=== PATIENT | female | born 1950 | race Caucasian/White ===

== ENCOUNTER 2017-10-02 15:19 | Emergency (ER) | payer MEDICARE, BC ==
[2017-10-02] MEDS ORDERED: Adacel (T-DAP) 0.5 ML VIAL ONE (15:56)
--- NOTE | 2017-10-02 16:10 | RAD ---
THREE VIEWS LEFT ANKLE: History: Left ankle injury at 12:30 today with pain and swelling. FINDINGS: Three views of the left ankle shows a mildly displaced fracture of the lateral malleolus with overlyi ng soft tissue swelling. No dislocation is seen. There also appears to be a fracture of the base of t he fifth metatarsal. IMPRESSION: 1. Lateral malleolus fracture. 2. Fifth metatarsal fracture. POS: [facility]
== END 2017-10-02 17:24 | disposition home or self-care (01) ==
LOC: SCSER 15:19
DX: S92.352A Displaced fracture of fifth metatarsal bone, left foot, initial encounter for closed fracture (principal); S82.62XA Displaced fracture of lateral malleolus of left fibula, initial encounter for closed fracture; S50.811A Abrasion of right forearm, initial encounter; E78.5 Hyperlipidemia, unspecified; F41.9 Anxiety disorder, unspecified; F32.9 Major depressive disorder, single episode, unspecified; Z23 Encounter for immunization; W10.9XXA Fall (on) (from) unspecified stairs and steps, initial encounter
CPT/HCPCS: 27786; 28475; 90715

== ENCOUNTER 2020-05-17 09:16 | Emergency (ER) | payer MEDICARE, BC ==
[2020-05-17] MEDS ORDERED: Ondansetron ODT 4 MG TAB ONE (09:40)
[2020-05-17 18:30] LABS: SARS-CoV-2 MS2 Positive; SARS-CoV-2 N Gene Positive; SARS-CoV-2 S Gene Positive; SARS-CoV-2 by NAA DETECTED (NotDetected); SARS-CoV-2 orf1ab Positive
== END 2020-05-17 09:50 | disposition home or self-care (01) ==
LOC: ERS 09:16
DX: U07.1 COVID-19 (principal); E78.5 Hyperlipidemia, unspecified; E78.00 Pure hypercholesterolemia, unspecified; F41.9 Anxiety disorder, unspecified; F32.9 Major depressive disorder, single episode, unspecified
CPT/HCPCS: 87804 ×2; 99283; U0003; 87635; Q0162

== ENCOUNTER 2020-05-23 11:39 | Inpatient (IN) | payer MEDICARE, BC ==
[~2020-05-23 11:39] MED LIST: Iopamidol-370 76% 500 ML 1 ML ONE
[2020-05-23] MEDS ORDERED: Dexamethasone 10 MG/ML VIAL ONE (12:20)
[2020-05-23] MEDS ORDERED: Ondansetron PF 4 MG/2 ML Vial ONE ×2 (12:20→14:04)
[2020-05-23 12:36] LABS: Hemoglobin 12.6 g/dL (12.0-16.0); Mean Corpuscular HGB CONC 33.3 g/dL (32.0-36.0); Mean Corpuscular Hemoglobin 26.3 pg (27.0-31.0); Mean Platelet Volume 8.4 fL (7.4-10.4); Platelet Count 322 thou/uL (130-400); RBC Distribution Width 12.6 % (11.5-14.5); Red Blood Cell (RBC) Count 4.78 mill/uL (4.20-5.40); White Blood Cell (WBC) Count 14.3 thou/uL (4.8-10.8)
[2020-05-23 12:46] LABS: ALT (SGPT) 39 U/L (8-55); AST (SGOT) 100 U/L (5-34); Albumin 3.5 g/dL (3.4-4.8); Alkaline Phosphatase 146 U/L (40-110); Anion Gap 18 mmol/L (10-20); BUN (Urea Nitrogen) 20 mg/dL (9.8-20.1); Bilirubin, Total 0.4 mg/dL (0.2-1.2); Calc. Creatinine Clearance 0 mL/min (70-130); Calcium 8.5 mg/dL (7.8-10.44); Carbon Dioxide 22 mmol/L (23-31); Chloride 103 mmol/L (98-107); Globulin 3.2 g/dL (2.4-3.5); Glucose 124 mg/dL (83-110); Potassium 3.6 mmol/L (3.5-5.1); Protein, Total 6.7 g/dL (6.0-8.3); Sodium 139 mmol/L (136-145)
--- NOTE | 2020-05-23 12:47 | RAD ---
Portable frontal chest radiograph: 05/23/2020 COMPARISON: 01/14/2015 HISTORY: Covid positive patient with worsening symptoms FINDINGS: There is extensive interstitial and groundglass opacity in the perihilar regions and both l jovi bases consistent with Covid pneumonia. No pneumothorax. No large volume pleural effusion. Heart and mediastinal contours demonstrate prominence of the cardiac silhouette. IMPRESSION: Interstitial and alveolar opacity bilaterally as above. Given history of Covid positive s tatus, findings are suspicious for bilateral Covid pneumonia.
[2020-05-23 12:54] LABS: Band 4 % (5-11); Lymphocytes 1 % (21-51); MDiff Complete? YES; Monocytes 7 % (0-10); Neutrophil 88 % (42-75); Platelet Morphology Comment Appears Adequate; RBC Morphology Normal; Vacuoles SLIGHT
[2020-05-23] MEDS ORDERED: Albuterol 200 PUFF (6.7GM INHALER) ONE (14:13)
[2020-05-23 15:08] LABS: Magnesium 2.2 mg/dL (1.6-2.6)
[2020-05-23] MEDS ORDERED: Calcium Carbonate 500 MG ChewTAB PO PRN (15:48)
[2020-05-23] MEDS ORDERED: traMADol HCl 50 MG TAB PO PRN (15:51)
[2020-05-23] MEDS ORDERED: Diabetic Tussin 200 MG/10 ML UDCUP PO PRN (15:52)
[2020-05-23] MEDS ORDERED: Albuterol 200 PUFF (6.7GM INHALER) INH PRN (15:56)
[2020-05-23] MEDS ORDERED: NS 0.9% w/ 20 MEQ KCL 1,000 ML/1,000 ML BAG IV SCH (16:00)
--- NOTE | 2020-05-23 16:02 | PDOC.HHP ---
Hospitalist HPI - History of Present Illness Shortness of breath/recently diagnosed with COVID-19 History of Present Illness: Patient is 70-year-old female with COVID-19 diagnosed 6 days ago presented to the emergency room with above complaints. Over the last 10 days patient developed gradual worsening shortness of breath along with flulike symptoms. She had cough without significant production. She also had intermittent nausea along with vomiting and diarrhea. She felt febrile and had intermittent chills. She visited her [id number] approximately 2 weeks ago who tested positive for coronavirus and flu virus. She denies significant change in her taste or smell. In the emergency room her initial vital signs showed temperature 99.9, respiration of 20, pulse rate of 89 with a blood pressure 139/76 with O2 saturation 91% on room air. ABGs showed pH of 7.39 with PO2 of 57.9 on 1 [address] nasal cannula. CT scan of the chest showed extensive bilateral groundglass opacity. COVID-19 was positive on 05/17. PAST MEDICAL HISTORY: Hyperlipidemia, chronic low back pain, degenerative joint disease, migraines, chronic left ear hearing issues PAST SURGICAL HISTORY: Tubal ligation 1991, uterine ablation in 1994, back surgery, knee surgery in 2013, fibrous cyst removal ALLERGIES: Azithromycindoes not work well per previous record SOCIAL HISTORY: Currently lives at home with her . She is full code. Denies current use of smoking or alcohol FAMILY HISTORY: Heart disease runs in her family. Mother had seizures. ED Course: MEDICATION ADMINISTRATION SUMMARY Sat May 23, 2020 16:03 Drug Name Dose Ordered Route Status Time Proventil HFA 4 puff(s) Inhaler-MDI Given 14:23 05/23/2020 ondansetron HCl intravenous 4 mg IV Push Given 14:07 05/23/2020 sodium chloride 0.9 % intravenous 1000 mL IV Fluid Infusion Given 14:06 05/23/2020 ondansetron HCl intravenous 4 mg IV Push Given 12:30 05/23/2020 sodium chloride 0.9 % intravenous 1000 mL IV Fluid Infusion Given 12:25 05/23/2020 dexamethasone sodium phosphate injection 8 mg IV Push Given 12:25 05/23/2020 VITAL SIGNS Sat May 23, 2020 11:50 Opal Lawrence BP: 139/76, Pulse: 85, Resp: 16, Pain: 10, O2 sat: 91 on (Room Air), Time: 05/23/2020 11:50. Hospitalist ROS - Review of Systems Constitutional: reports: fever, chills, weakness, malaise Respiratory: reports: cough Cardiovascular: denies: chest pain, palpitations, orthopnea, paroxysmal noc. dyspnea, edema, light headedness, other Genitourinary: denies: dysuria, frequency, incontinence, hematuria, retention, other All other systems reviewed; all pertinent +/- noted in HPI/Subj - Medication Medications: atorvastatin TABLET : Strength - 40 mg : ORAL Patient Dose: unk tab(s) Oral once a day. Lyrica CAPSULE : Strength - 75 mg : ORAL Patient Dose: unk tab(s) Oral once a day (in the morning). traMADol TABLET : Strength - 50 mg : ORAL Patient Dose: Unknown. - Exam General Appearance: ill appearing Eye: PERRL, anicteric sclera ENT: normocephalic atraumatic, no oropharyngeal lesions Neck: supple, no JVD Heart: RRR, no gallops, no rubs, normal peripheral pulses Respiratory: no wheezes, rales, rhonchi, tachypneic Gastrointestinal: soft, non-distended, normal bowel sounds, no guarding, no rigidity Extremities: no cyanosis, no clubbing, no edema Skin: normal turgor, no lesions Neurological: no new deficit Musculoskeletal: normal tone, generalized weakness Psychiatric: normal affect, A&O x 3 Hospitalist Results - Labs Result Diagrams: 05/23/20 12:19 05/23/20 12:19 Lab results: Laboratory Results 05/23/20 16:46: PT 13.8, INR 1.0, APTT 30.0 05/23/20 16:46: Troponin I 0.025 05/23/20 16:44: Specimen Type ARTERIAL, Puncture Site RBA, Bicarbonate Actual 18.5 L, ABG pH 7.39, ABG pCO2 31.4 L, ABG pO2 57.9 L*, ABG O2 Sat (Measured) 90.9 L, ABG O2 Content 15.2 L, ABG Base Excess -5.5 L, ABG Hematocrit 35.0 L, ABG Hemoglobin 12.0, ABG Oxyhemoglobin 90.1 L, ABG Carboxyhemoglobin 0.3, ABG Methemoglobin 0.60, ABG Deoxyhemoglobin 9.0 H, A-a O2 Gradient 73.970 H, Ionized Calcium 1.09 L, Mode of Support 1 NC, Inspired O2 24, Sodium 135, Potassium 3.81, Chloride 105 05/23/20 12:19: B-Natriuretic Peptide 137.9 H 05/23/20 12:19: C-Reactive Protein 21.98 H 05/23/20 12:19: Phosphorus 2.0 L, Magnesium 2.2 05/23/20 12:19: Troponin I 0.023 05/23/20 12:19: D-Dimer 1.16 H 05/23/20 12:19: WBC 14.3 H, RBC 4.78, Hgb 12.6, Hct 37.8, MCV 79.0, MCH 26.3 L, MCHC 33.3, RDW 12.6, Plt Count 322, MPV 8.4, Neutrophils % (Manual) 88 H, Band Neuts % (Manual) 4 L, Lymphocytes % (Manual) 1 L, Monocytes % (Manual) 7, Lymphocytes # Not Reportable, WBC Morphology SLIGHT, Plt Morphology Comment Appears Adequate, RBC Morph Comment Normal 05/23/20 12:19: Lactic Acid 1.1 05/23/20 12:19: Sodium 139, Potassium 3.6, Chloride 103, Carbon Dioxide 22 L, Anion Gap 18, BUN 20, Creatinine 0.81, Estimated GFR (MDRD) 70, Glucose 124 H, Calcium 8.5, Total Bilirubin 0.4, AST 100 H, ALT 39, Alkaline Phosphatase 146 H, Serum Total Protein 6.7, Albumin 3.5, Globulin 3.2, Albumin/Globulin Ratio 1.1 L 05/23/20 12:17: Ferritin 217.03 Laboratory Tests 05/17/20 09:50 SARS-CoV-2 (PCR) DETECTED A* - EKG Interpretation EKG: Sinus rhythm with nonspecific ST-T wave changesreviewed by me - Radiology Interpretation Chest x-ray Status: image reviewed by me Additional Comment: Bilateral infiltrate consistent with COVID-[address] scan - chest Status: image reviewed by me Additional Comment: Extensive bilateral infiltrate Hospitalist H&P A/P - Plan Plan: Acute hypoxic respiratory failure due to moderate to severe COVID-19 pneumonia Sepsis due to above Hypophosphatemia CKD stage II Abnormal LFTs Hyperlipidemia Chronic low back pain Chronic left ear hearing issues Plan: Patient will be monitored on the telemetry unit. Patient is at high risk of decompensation. Electrolytes will be replaced. Supplemental oxygen. Bronchodilators. Consult infectious disease. IV dexamethasone. Remdesivir and convalescent plasma if patient meets the criteria. DVT prophylaxis with Lovenox. GI prophylaxis. Continuous pulse oximetry. ABG reviewed. Verify home medication and start accordingly. Monitor inflammatory markers. Patient understands above plan of care. Full code. Patient makes her own decision with the help of her
--- NOTE | 2020-05-23 16:30 | CT ---
CT PULMONARY ANGIOGRAM WITH IV CONTRAST AND 3D MIP RECONSTRUCTIONS: 05/23/20 PROVIDED CLINICAL HISTORY: Cough. FINDINGS: No evidence for central or segmental pulmonary embolus. Coronary calcium. Extensive bilateral ground opacity in a patchy manner, predominantly affecting the right upper and right lobe. No pleural fluid or pneumothorax apparent. The airway appears patent and of normal caliber. The visualized portions of the upper abdomen appear unremarkable. Osseous structures demonstrate no acute findings. IMPRESSION: 1. No evidence for central or segmental pulmonary embolus. 2. Extensive bilateral ground glass opacity, typical but not specific for COVID pneumonia. POS: [facility]
[2020-05-23 16:53] LABS: Actual Bicarbonate (HCO3a) 18.5 mEq/L (22-28); Analyzer IN Cardio ER; Base Excess (BEa) -5.5 mEq/L (-2.0 to +3.0); CO2 Tension 31.4 mmHg (35.0-45.0); Calcium, Ionized (arterial) 1.09 mmol/L (1.12-1.30); Carboxyhemoglobin (COHb) 0.3 gm% (0.0-3.0); Potassium - ABG Lab 3.81 mmol/L (3.70-5.30); pH, Arterial 7.39 (7.35-7.45)
[2020-05-23 16:55] LABS: O2 Tension (PaO2), arterial 57.9 mmHg (> 70.0); Puncture Site RBA
[2020-05-23 17:44] LABS: Prothrombin Time 13.8 sec (12.0-14.7)
[2020-05-23] MEDS: Albuterol 200 PUFF (6.7GM INHALER) INH SCH ×2 (18:34→22:50)
[2020-05-23] MEDS: K-Phos Neutral 250 MG TAB PO SCH (18:35)
[2020-05-23] MEDS ORDERED: REMDESIVIR (EUA) 200 MG in Sodium Chloride 0.9% 250 ML 210 ML IV SCH (19:00)
[2020-05-23] MEDS: guaiFENesin ER 600 MG TAB PO SCH (20:39)
[2020-05-23] MEDS: Enoxaparin Sodium 40 MG/0.4 ML SYRINGE SC SCH (20:39)
[2020-05-23] MEDS: Zinc Sulfate 220 MG CAP PO SCH (20:40)
[2020-05-23] MEDS: Famotidine 20 MG TAB PO SCH (20:40)
[2020-05-23] MEDS: Senokot S 8.6-50 MG TAB PO SCH (20:40)
[2020-05-24 00:07] VITALS: BMI 33.0
[2020-05-24] MEDS: Albuterol 200 PUFF (6.7GM INHALER) INH SCH ×6 (02:32→22:05)
[2020-05-24 05:06] LABS: #Lymphocytes 0.6 thou/uL (1.20-3.40); #Monocytes 0.7 thou/uL (0.11-0.59); #Neutrophils 13.9 thou/uL (1.40-6.50); %Basophils 0.1 % (0.0-1.0); %Lymphocytes 3.6 % (21.0-51.0); %Monocytes 4.3 % (0.0-10.0); %Neutrophils 91.9 % (42.0-75.0); Hemoglobin 11.6 g/dL (12.0-16.0); Mean Corpuscular Hemoglobin 26.3 pg (27.0-31.0); Mean Corpuscular Volume 79.6 fL (78.0-98.0); Mean Platelet Volume 8.6 fL (7.4-10.4); Platelet Count 296 thou/uL (130-400); RBC Distribution Width 12.6 % (11.5-14.5); Red Blood Cell (RBC) Count 4.41 mill/uL (4.20-5.40); White Blood Cell (WBC) Count 15.2 thou/uL (4.8-10.8)
[2020-05-24 05:28] LABS: ALT (SGPT) 43 U/L (8-55); AST (SGOT) 81 U/L (5-34); Albumin 3.3 g/dL (3.4-4.8); Alkaline Phosphatase 120 U/L (40-110); Anion Gap 15 mmol/L (10-20); BUN (Urea Nitrogen) 18 mg/dL (9.8-20.1); Bilirubin, Total 0.2 mg/dL (0.2-1.2); Calc. Creatinine Clearance 94 mL/min (70-130); Carbon Dioxide 21 mmol/L (23-31); Chloride 107 mmol/L (98-107); Globulin 2.8 g/dL (2.4-3.5); Glucose 130 mg/dL (83-110); Potassium 3.7 mmol/L (3.5-5.1); Protein, Total 6.1 g/dL (6.0-8.3); Sodium 139 mmol/L (136-145)
[2020-05-24 05:32] LABS: Phosphorus 1.9 mg/dL (2.3-4.7)
[2020-05-24] MEDS ORDERED: K-Phos Neutral 250 MG TAB PO SCH (06:15)
[2020-05-24] MEDS: Enoxaparin Sodium 40 MG/0.4 ML SYRINGE SC SCH ×2 (09:23→19:55)
[2020-05-24] MEDS: guaiFENesin ER 600 MG TAB PO SCH ×2 (09:23→19:55)
[2020-05-24] MEDS: Ascorbic Acid 500 mg Chewable Tablet PO SCH (09:23)
[2020-05-24] MEDS: Senokot S 8.6-50 MG TAB PO SCH (09:23)
[2020-05-24] MEDS: Famotidine 20 MG TAB PO SCH ×2 (09:24→19:54)
[2020-05-24] MEDS: Dexamethasone 4 mg/ml Vial SLOW IVP SCH (09:24)
[2020-05-24] MEDS ORDERED: Loperamide HCl 2 MG CAP PO PRN (11:09)
--- NOTE | 2020-05-24 11:13 | PDOC.HOSPP ---
- Subjective Encounter Date: 05/24/20 Encounter Time: 10:30 Subjective: Patient seen and examined for respiratory failure due to COVID-19 pneumonia. Shortness of breath slightly better. Having diarrhea overnight. Denies any nausea or vomiting. Poor appetite. - Objective Vital Signs & Weight: Vital Signs (12 hours) Temp Pulse Pulse Resp BP BP BP 05/24/20 05:33 99.9 F H 85 22 H 127/58 L 05/24/20 04:26 98.7 F 85 22 H 126/59 L 05/24/20 04:12 98.7 F 85 22 H 126/59 L 05/24/20 03:56 99.1 F 80 22 H 127/58 L 05/24/20 03:06 99.1 F 80 22 H 127/58 L 05/24/20 00:17 97.4 F L 74 20 132/60 Pulse Ox 05/24/20 05:33 91 L 05/24/20 04:26 90 L 05/24/20 04:12 90 L 05/24/20 03:56 92 L 05/24/20 03:06 92 L 05/24/20 00:17 90 L Weight Weight 186 lb 3.239 oz I&O: 05/23/20 05/24/20 05/25/20 06:59 06:59 06:59 Intake Total 240 Balance 240 Result Diagrams: 05/24/20 04:56 05/24/20 04:57 Additional Labs: Abnormal Lab Results - Last 48 hrs 05/23/20 12:19: Carbon Dioxide 22 L, AST 100 H, Alkaline Phosphatase 146 H, Albumin/Globulin Ratio 1.1 L 05/23/20 12:19: WBC 14.3 H, MCH 26.3 L, Neutrophils % (Manual) 88 H, Band Neuts % (Manual) 4 L, Lymphocytes % (Manual) 1 L 05/23/20 12:19: D-Dimer 1.16 H 05/23/20 12:19: Phosphorus 2.0 L 05/23/20 12:19: C-Reactive Protein 21.98 H 05/23/20 12:19: B-Natriuretic Peptide 137.9 H 05/23/20 16:44: Bicarbonate Actual 18.5 L, ABG pCO2 31.4 L, ABG pO2 57.9 L*, ABG O2 Sat (Measured) 90.9 L, ABG O2 Content 15.2 L, ABG Base Excess -5.5 L, ABG Hematocrit 35.0 L, ABG Oxyhemoglobin 90.1 L, ABG Deoxyhemoglobin 9.0 H, A-a O2 Gradient 73.970 H, Ionized Calcium 1.09 L 05/24/20 04:56: C-Reactive Protein 19.92 H 05/24/20 04:56: WBC 15.2 H, Hgb 11.6 L, Hct 35.1 L, MCH 26.3 L, Neutrophils % 91.9 H, Lymphocytes % 3.6 L, Neutrophils # 13.9 H, Lymphocytes # 0.6 L, Monocytes # 0.7 H 05/24/20 04:57: D-Dimer 1.20 H 05/24/20 04:57: Carbon Dioxide 21 L, Phosphorus 1.9 L, AST 81 H, Alkaline Phosphatase 120 H, Albumin 3.3 L Radiology Reviewed by me: Yes (CT angiogram/bilateral pneumonia) EKG Reviewed by me: Yes (Sinus rhythm on telemetry) Hospitalist ROS - Review of Systems Respiratory: reports: shortness of breath, SOB with excertion. denies: cough, dry, hemoptysis, pleuritic pain, sputum, wheezing, other Cardiovascular: denies: chest pain, palpitations, orthopnea, paroxysmal noc. dyspnea, edema, light headedness, other Gastrointestinal: reports: diarrhea. denies: nausea, vomiting, abdominal pain, constipation, melena, hematochezia, other Genitourinary: denies: dysuria, frequency, incontinence, hematuria, retention, other All other systems reviewed; all pertinent +/- noted in HPI/Subj - Medication Medications: Active Medications Generic Name Dose Route Start Last Admin Trade Name Freq PRN Reason Stop Dose Admin Albuterol Sulfate 2 puff 05/23/20 18:30 05/24/20 09:40 Albuterol 200 Puff (6.7gm Inhaler) INH 2 puff [id number] SUMI Administration Ascorbic Acid 1,000 mg 05/24/20 09:00 05/24/20 09:23 Ascorbic Acid 500 Mg Chewable Tablet PO 1,000 mg DAILY SUMI Administration Dexamethasone 6 mg 05/24/20 09:00 05/24/20 09:24 Dexamethasone 4 Mg/Ml Vial SLOW IVP 6 mg DAILY SUMI Administration Enoxaparin Sodium 40 mg 05/23/20 21:00 05/24/20 09:23 Enoxaparin Sodium 40 Mg/0.4 Ml Syringe SC 40 mg 0900,2100 SUMI Administration Famotidine 20 mg 05/23/20 21:00 05/24/20 09:24 Famotidine 20 Mg Tab PO 20 mg BID SUMI Administration Guaifenesin 600 mg 05/23/20 21:00 05/24/20 09:23 Guaifenesin Er 600 Mg Tab PO 600 mg Q12HR SUMI Administration Sodium Chloride 10 ml 05/23/20 15:48 05/23/20 20:41 Flush - Normal Saline 10 Ml Syringe IVF 10 ml PRN PRN Administration Saline Flush Zinc Sulfate 220 mg 05/23/20 21:00 05/23/20 20:40 Zinc Sulfate 220 Mg Cap PO 220 mg HS SUMI Administration - Exam General Appearance: ill appearing Eye: PERRL ENT: normocephalic atraumatic, no oropharyngeal lesions Neck: supple, symmetric, no JVD, no thyromegaly Heart: RRR, no gallops, no rubs, normal peripheral pulses Respiratory: no wheezes, rales, rhonchi, tachypneic Gastrointestinal: soft, non-tender, non-distended, normal bowel sounds Extremities: no cyanosis, no clubbing Neurological: cranial nerve grossly intact, normal sensation to touch, no new deficit Musculoskeletal: normal tone, normal strength, generalized weakness Psychiatric: normal affect, A&O x 3 Hosp A/P - Plan DVT proph w/lovenox, DVT proph w/SCDs Acute hypoxic respiratory failure due to moderate to severe COVID-19 pneumonia Sepsis due to above Diarrhea due to above Hypophosphatemia CKD stage II Abnormal LFTs Hyperlipidemia Chronic low back pain Chronic left ear hearing issues Plan: Continue O2 supplementation. Continue remdesivir. S/p convalescent plasma. Continue dexamethasone. Continue Lovenox twice daily for DVT prophylaxis. Change K-Phos to IV due to diarrhea. Add as needed Imodium. Continue vitamin C and zinc. Continue bronchodilators
[2020-05-24] MEDS ORDERED: Potassium Phosphate 15 MMOL in Sodium Chloride 0.9% 250 ML 250 ML IVPB SCH (11:15)
[2020-05-24] MEDS: K-Phos Neutral 250 MG TAB PO SCH (12:48)
[2020-05-24] MEDS: REMDESIVIR (EUA) 100 MG in Sodium Chloride 0.9% 250 ML 230 ML IV SCH (18:08)
--- NOTE | 2020-05-24 18:31 | CON ---
DATE OF CONSULTATION: 05/24/2020 REASON FOR CONSULTATION: COVID pneumonia. HISTORY OF PRESENT ILLNESS: A 70-year-old, history of osteoporosis, hyperlipidemia, who was diagnosed with COVID on May 17, was having symptoms 10 days before admission, became more dyspneic and was admitted, has some diarrhea, was unable to eat until now. On arrival, blood pressure 130/76, heart rate 85, O2 saturation 91 on room air. Exam showed the patient to be in some distress, tachypneic. Lungs were described as clear. Heart examination was described as normal. Other findings; sodium went up to 139, creatinine 0.81, AST 100, alkaline phosphatase 146. CRP 21. Ferritin was 217. Diffuse bilateral ground-glass opacities on CT angiogram and she has been on remdesivir, started, today actually first dose. She is on Decadron started today as well. Feeling a little better. She was able to eat a sandwich. No headaches. [id number] dyspnea. She cannot walk to the bathroom without becoming very exhausted, so she has the bedside commode to help her out with that. PAST MEDICAL HISTORY: Hyperlipidemia, low back pain, and chronic hearing loss. PAST SURGICAL HISTORY: Tubal ligation, uterine ablation, laminectomy, and arthroscopy knee. ALLERGIES: NONE. SOCIAL HISTORY: Lives with . Never smoker. FAMILY HISTORY: Noncontributory. CURRENT MEDICATIONS: 1. Inhaler. 2. Decadron. 3. Lovenox. 4. Robitussin. 5. Imodium. 6. Remdesivir. PHYSICAL EXAMINATION: VITAL SIGNS: T-max 99.9, blood pressure 120/50, heart rate 91, respiratory rate 22, saturating at 91%, 92% on 4 L nasal cannula. GENERAL: Awake, alert, oriented, follows commands. Tachypneic. LUNGS: With scattered inspiratory crackles. HEART: S1 and S2, regular rate. ABDOMEN: Soft. Not distended or tender. No ascites. No bladder distention. MUSCULOSKELETAL: No joint inflammatory activity. Moves extremities equally. LABORATORY STUDIES: Followup labs; creatinine stable at 0.73. Liver profile, AST 81. White cell count 15.2, hemoglobin 11.6, platelets 296, 91% neutrophils. ASSESSMENT: Hyperlipidemia with severe COVID pneumonia. She is almost at the level where she would require high-flow nasal cannula O2 supplementation. Hopefully, she will turn around with the Decadron and remdesivir to avoid that. Daily markers and continue current management. Job ID: [id number]
[2020-05-24] MEDS: Zinc Sulfate 220 MG CAP PO SCH (19:55)
[2020-05-24] MEDS ORDERED: FLU VACC QS2020-21(65YR UP)/PF 240 MCG/0.7 ML SYRINGE IM ONE (21:00)
[2020-05-24] MEDS ORDERED: Melatonin 3 MG TAB PO SCH (22:00)
[2020-05-25] MEDS: Albuterol 200 PUFF (6.7GM INHALER) INH SCH ×6 (02:28→23:56)
[2020-05-25 06:07] LABS: ALT (SGPT) 47 U/L (8-55); AST (SGOT) 60 U/L (5-34); Albumin 2.9 g/dL (3.4-4.8); Alkaline Phosphatase 116 U/L (40-110); Anion Gap 14 mmol/L (10-20); BUN (Urea Nitrogen) 23 mg/dL (9.8-20.1); Bilirubin, Total 0.2 mg/dL (0.2-1.2); CRP (Inflammatory) 11.05 mg/dL (= or < 0.5); Calc. Creatinine Clearance 97 mL/min (70-130); Calcium 7.5 mg/dL (7.8-10.44); Carbon Dioxide 22 mmol/L (23-31); Chloride 108 mmol/L (98-107); Globulin 2.6 g/dL (2.4-3.5); Glucose 127 mg/dL (83-110); Potassium 3.7 mmol/L (3.5-5.1); Protein, Total 5.5 g/dL (6.0-8.3); Sodium 140 mmol/L (136-145)
[2020-05-25 06:09] LABS: Phosphorus 2.7 mg/dL (2.3-4.7)
[2020-05-25 06:15] LABS: ALT (SGPT) 47 U/L (8-55); AST (SGOT) 60 U/L (5-34); Albumin 2.9 g/dL (3.4-4.8); Alkaline Phosphatase 114 U/L (40-110); Bilirubin, Direct 0.1 mg/dL (0.1-0.3); Bilirubin, Total 0.2 mg/dL (0.2-1.2); Protein, Total 5.5 g/dL (6.0-8.3)
[2020-05-25 06:19] LABS: Band 11 % (5-11); Hemoglobin 11.3 g/dL (12.0-16.0); Lymphocytes 5 % (21-51); MDiff Complete? YES; Mean Corpuscular HGB CONC 34.2 g/dL (32.0-36.0); Mean Corpuscular Volume 78.9 fL (78.0-98.0); Mean Platelet Volume 9.2 fL (7.4-10.4); Monocytes 1 % (0-10); Neutrophil 83 % (42-75); Platelet Count 298 thou/uL (130-400); Platelet Morphology Comment Appears Adequate; RBC Distribution Width 12.7 % (11.5-14.5); Red Blood Cell (RBC) Count 4.16 mill/uL (4.20-5.40); White Blood Cell (WBC) Count 14.5 thou/uL (4.8-10.8)
[2020-05-25] MEDS: Famotidine 20 MG TAB PO SCH ×2 (09:00→19:41)
[2020-05-25] MEDS: Enoxaparin Sodium 40 MG/0.4 ML SYRINGE SC SCH ×2 (09:00→19:41)
[2020-05-25] MEDS: guaiFENesin ER 600 MG TAB PO SCH ×2 (09:00→19:42)
[2020-05-25] MEDS: Ascorbic Acid 500 mg Chewable Tablet PO SCH (09:00)
[2020-05-25] MEDS: Dexamethasone 4 mg/ml Vial SLOW IVP SCH (09:01)
--- NOTE | 2020-05-25 17:40 | PDOC.HOSPP ---
- Subjective Encounter Date: 05/25/20 Encounter Time: 09:45 Subjective: Patient up in bed no complaints. - Objective Vital Signs & Weight: Vital Signs (12 hours) Temp Pulse Resp BP Pulse Ox 05/25/20 15:25 98.3 F 85 18 130/62 98 05/25/20 11:15 97.7 F 84 18 144/68 H 96 05/25/20 09:20 99 05/25/20 07:25 98.3 F 79 16 139/62 99 Weight Weight 186 lb 3.239 oz I&O: 05/24/20 05/25/20 05/26/20 06:59 06:59 06:59 Intake Total 240 740 Balance 240 740 Result Diagrams: 05/25/20 04:58 05/25/20 04:58 Hospitalist ROS - Review of Systems Cardiovascular: denies: chest pain, palpitations, orthopnea, paroxysmal noc. dyspnea, edema, light headedness, other Gastrointestinal: denies: nausea, vomiting, abdominal pain, diarrhea, constipation, melena, hematochezia, other Genitourinary: denies: dysuria, frequency, incontinence, hematuria, retention, other - Medication Medications: Active Medications Generic Name Dose Route Start Last Admin Trade Name Freq PRN Reason Stop Dose Admin Albuterol Sulfate 2 puff 05/23/20 18:30 05/25/20 13:44 Albuterol 200 Puff (6.7gm Inhaler) INH 2 puff [id number] SUMI Administration Ascorbic Acid 1,000 mg 05/24/20 09:00 05/25/20 09:00 Ascorbic Acid 500 Mg Chewable Tablet PO 1,000 mg DAILY SUMI Administration Dexamethasone 6 mg 05/24/20 09:00 05/25/20 09:01 Dexamethasone 4 Mg/Ml Vial SLOW IVP 6 mg DAILY SUMI Administration Enoxaparin Sodium 40 mg 05/23/20 21:00 05/25/20 09:00 Enoxaparin Sodium 40 Mg/0.4 Ml Syringe SC 40 mg [id number] SUMI Administration Famotidine 20 mg 05/23/20 21:00 05/25/20 09:00 Famotidine 20 Mg Tab PO 20 mg BID SUMI Administration Guaifenesin 600 mg 05/23/20 21:00 05/25/20 09:00 Guaifenesin Er 600 Mg Tab PO 600 mg Q12HR SUMI Administration Remdesivir 100 mg/ Sodium 250 mls @ 250 mls/hr 05/24/20 19:00 05/24/20 18:08 Chloride IV 05/27/20 19:59 250 mls 1900 SUMI Administration Sodium Chloride 10 ml 05/23/20 15:48 05/25/20 09:01 Flush - Normal Saline 10 Ml Syringe IVF 10 ml PRN PRN Administration Saline Flush Zinc Sulfate 220 mg 05/23/20 21:00 05/24/20 19:55 Zinc Sulfate 220 Mg Cap PO 220 mg HS SUMI Administration - Exam Neck: negative: supple, symmetric, no JVD, no thyromegaly, no lymphadenopathy, no carotid bruit, JVD Heart: negative: RRR, no murmur, no gallops, no rubs, normal peripheral pulses, irregular, diminshed peripheral pulses, murmur present, II/IV, III/IV Respiratory: negative: CTAB, no wheezes, no rales, no ronchi, normal chest expansion, no tachypnea, normal percussion, rales, rhonchi, tachypneic, wheezes Gastrointestinal: negative: soft, non-tender, non-distended, normal bowel sounds, no palpable masses, no hepatomegaly, no splenomegaly, no bruit, no guarding, no rigidity, tender to palpation, distended, diminished bowl sounds, voluntary guarding Hosp A/P - Plan DVT proph w/lovenox, DVT proph w/SCDs Acute hypoxic respiratory failure due to moderate to severe COVID-19 pneumonia Sepsis due to above Diarrhea due to above Hypophosphatemia CKD stage II Abnormal LFTs Hyperlipidemia Chronic low back pain Chronic left ear hearing issues Plan: Continue O2 supplementation. Continue remdesivir. S/p convalescent plasma. Continue dexamethasone. Continue Lovenox twice daily for DVT prophylaxis. Change K-Phos to IV due to diarrhea. Add as needed Imodium. Continue vitamin C and zinc. Continue bronchodilators 05/25 patient continues to be on 5 L nasal cannula. We will continue current treatment.
--- NOTE | 2020-05-25 18:03 | PRG ---
DATE OF SERVICE: 05/25/2020 SUBJECTIVE: The patient is oriented and does not appear in distress. She still has dyspnea, but no abdominal pain. She is able to eat. She had loose stool earlier. No neurological issues. OBJECTIVE: VITAL SIGNS: T-max 99.9, she is currently 98.3; BP 130/60; heart rate 85; respiratory rate 18; O2 saturation 98% on 5 L. O2 requirements have gone up a bit, but that was mostly to get her O2 saturations above the 91% range, which she had been on the first two days while she was here. LUNGS: Symmetric air entry. HEART: S1 and S2. Regular rate. ABDOMEN: Soft and not distended. EXTREMITIES: Moves extremities equally. MEDICATIONS: She is on, 1. Decadron. 2. Remdesivir. ASSESSMENT AND DISCUSSION: Hyperlipidemia and severe COVID pneumonia, still not much improvement. We will see if she starts showing some signs starting tomorrow. Job ID: [id number]
[2020-05-25] MEDS: REMDESIVIR (EUA) 100 MG in Sodium Chloride 0.9% 250 ML 230 ML IV SCH (18:29)
[2020-05-25] MEDS: Zinc Sulfate 220 MG CAP PO SCH (19:41)
[2020-05-25] MEDS: Melatonin 3 MG TAB PO SCH (19:42)
[2020-05-26] MEDS: Albuterol 200 PUFF (6.7GM INHALER) INH SCH ×7 (03:13→20:59)
[2020-05-26 05:43] LABS: ALT (SGPT) 52 U/L (8-55); AST (SGOT) 53 U/L (5-34); Albumin 2.7 g/dL (3.4-4.8); Alkaline Phosphatase 106 U/L (40-110); Anion Gap 14 mmol/L (10-20); BUN (Urea Nitrogen) 20 mg/dL (9.8-20.1); Bilirubin, Total 0.2 mg/dL (0.2-1.2); Calc. Creatinine Clearance 109 mL/min (70-130); Calcium 7.4 mg/dL (7.8-10.44); Carbon Dioxide 23 mmol/L (23-31); Chloride 107 mmol/L (98-107); Globulin 2.4 g/dL (2.4-3.5); Glucose 126 mg/dL (83-110); Potassium 3.6 mmol/L (3.5-5.1); Protein, Total 5.1 g/dL (6.0-8.3); Sodium 140 mmol/L (136-145)
[2020-05-26 05:45] LABS: ALT (SGPT) 52 U/L (8-55); AST (SGOT) 50 U/L (5-34); Albumin 2.7 g/dL (3.4-4.8); Alkaline Phosphatase 106 U/L (40-110); Bilirubin, Direct 0.1 mg/dL (0.1-0.3); Bilirubin, Total 0.2 mg/dL (0.2-1.2); CRP (Inflammatory) 5.42 mg/dL (= or < 0.5)
[2020-05-26 05:55] LABS: Band 1 % (5-11); Hypochromia SLIGHT = 6-15 cells (100X) (0-5/hpf); Lymphocytes 5 % (21-51); MDiff Complete? YES; Mean Corpuscular HGB CONC 33.5 g/dL (32.0-36.0); Mean Corpuscular Hemoglobin 26.6 pg (27.0-31.0); Mean Corpuscular Volume 79.4 fL (78.0-98.0); Mean Platelet Volume 8.7 fL (7.4-10.4); Metamyelocyte 1 % (0-0); Monocytes 8 % (0-10); Neutrophil 85 % (42-75); Platelet Count 317 thou/uL (130-400); Platelet Morphology Comment Appears Adequate; RBC Distribution Width 12.8 % (11.5-14.5); Red Blood Cell (RBC) Count 4.14 mill/uL (4.20-5.40); White Blood Cell (WBC) Count 16.8 thou/uL (4.8-10.8)
[2020-05-26] MEDS: Lidocaine 5% Patch TD SCH (09:05)
[2020-05-26] MEDS: Enoxaparin Sodium 40 MG/0.4 ML SYRINGE SC SCH ×2 (09:05→20:57)
[2020-05-26] MEDS: Ascorbic Acid 500 mg Chewable Tablet PO SCH (09:05)
[2020-05-26] MEDS: Famotidine 20 MG TAB PO SCH ×2 (09:05→20:57)
[2020-05-26] MEDS: Dexamethasone 4 mg/ml Vial SLOW IVP SCH (09:05)
[2020-05-26] MEDS: guaiFENesin ER 600 MG TAB PO SCH ×2 (09:05→20:57)
--- NOTE | 2020-05-26 15:03 | PDOC.HOSPP ---
- Subjective Encounter Date: 05/26/20 Encounter Time: 11:45 Subjective: Patient up in bed states she feels much better. - Objective Vital Signs & Weight: Vital Signs (12 hours) Temp Pulse Resp BP BP Pulse Ox 05/26/20 13:00 98.3 F 86 16 134/65 99 05/26/20 09:10 97.5 F L 77 20 142/71 H 97 Weight Weight 186 lb 3.239 oz I&O: 05/25/20 05/26/20 05/27/20 06:59 06:59 06:59 Intake Total 740 1851.5 Output Total 1200 Balance 740 651.5 Result Diagrams: 05/26/20 05:00 05/26/20 05:00 Hospitalist ROS - Review of Systems Cardiovascular: denies: chest pain, palpitations, orthopnea, paroxysmal noc. dyspnea, edema, light headedness, other Gastrointestinal: denies: nausea, vomiting, abdominal pain, diarrhea, c onstipation, melena, hematochezia, other Genitourinary: denies: dysuria, frequency, incontinence, hematuria, retention, other - Medication Medications: Active Medications Generic Name Dose Route Start Last Admin Trade Name Freq PRN Reason Stop Dose Admin Albuterol Sulfate 2 puff 05/23/20 18:30 05/26/20 09:28 Albuterol 200 Puff (6.7gm Inhaler) INH 2 puff [id number] SUMI Administration Ascorbic Acid 1,000 mg 05/24/20 09:00 05/26/20 09:05 Ascorbic Acid 500 Mg Chewable Tablet PO 1,000 mg DAILY SUMI Administration Dexamethasone 6 mg 05/24/20 09:00 05/26/20 09:05 Dexamethasone 4 Mg/Ml Vial SLOW IVP 6 mg DAILY SUMI Administration Enoxaparin Sodium 40 mg 05/23/20 21:00 05/26/20 09:05 Enoxaparin Sodium 40 Mg/0.4 Ml Syringe SC 40 mg [id number],[id number] SUMI Administration Famotidine 20 mg 05/23/20 21:00 05/26/20 09:05 Famotidine 20 Mg Tab PO 20 mg BID SUMI Administration Guaifenesin 600 mg 05/23/20 21:00 05/26/20 09:05 Guaifenesin Er 600 Mg Tab PO 600 mg Q12HR SUMI Administration Remdesivir 100 mg/ Sodium 250 mls @ 250 mls/hr 05/24/20 19:00 05/25/20 18:29 Chloride IV 05/27/20 19:59 250 mls 1900 SUMI Administration Lidocaine 1 patch 05/26/20 09:00 05/26/20 09:05 Lidocaine 5% Patch TD 1 patch DAILY SUMI Administration Melatonin 3 mg 05/25/20 21:00 05/25/20 19:42 Melatonin 3 Mg Tab PO 3 mg HS SUMI Administration Sodium Chloride 10 ml 05/23/20 15:48 05/25/20 09:01 Flush - Normal Saline 10 Ml Syringe IVF 10 ml PRN PRN Administration Saline Flush Zinc Sulfate 220 mg 05/23/20 21:00 05/25/20 19:41 Zinc Sulfate 220 Mg Cap PO 220 mg HS SUMI Administration - Exam Neck: negative: supple, symmetric, no JVD, no thyromegaly, no lymphadenopathy, no carotid bruit, JVD Heart: negative: RRR, no murmur, no gallops, no rubs, normal peripheral pulses, irregular, diminshed peripheral pulses, murmur present, II/IV, III/IV Respiratory: negative: CTAB, no wheezes, no rales, no ronchi, normal chest expansion, no tachypnea, normal percussion, rales, rhonchi, tachypneic, wheezes Hosp A/P - Plan DVT proph w/lovenox, DVT proph w/SCDs Acute hypoxic respiratory failure due to moderate to severe COVID-19 pneumonia Sepsis due to above Diarrhea due to above Hypophosphatemia CKD stage II Abnormal LFTs Hyperlipidemia Chronic low back pain Chronic left ear hearing issues Plan: Continue O2 supplementation. Continue remdesivir. S/p convalescent plasma. Continue dexamethasone. Continue Lovenox twice daily for DVT prophylaxis. Change K-Phos to IV due to diarrhea. Add as needed Imodium. Continue vitamin C and zinc. Continue bronchodilators 05/25 patient continues to be on 5 L nasal cannula. We will continue current treatment. 05/26 patient currently on 3 to 4 L nasal cannula sats are stable. We will continue remdesivir. We will get physical therapy to see the patient.
[2020-05-26] MEDS: REMDESIVIR (EUA) 100 MG in Sodium Chloride 0.9% 250 ML 230 ML IV SCH (18:01)
[2020-05-26] MEDS: Zinc Sulfate 220 MG CAP PO SCH (20:57)
[2020-05-26] MEDS: Melatonin 3 MG TAB PO SCH (20:57)
[2020-05-26] MEDS: Lidocaine Patch Removal 1 EACH TOP SCH (20:58)
[2020-05-27] MEDS: Albuterol 200 PUFF (6.7GM INHALER) INH SCH ×7 (02:24→21:51)
[2020-05-27 06:05] LABS: ALT (SGPT) 55 U/L (8-55); AST (SGOT) 39 U/L (5-34); Albumin 2.7 g/dL (3.4-4.8); Alkaline Phosphatase 115 U/L (40-110); Bilirubin, Direct 0.2 mg/dL (0.1-0.3); Bilirubin, Total 0.3 mg/dL (0.2-1.2); CRP (Inflammatory) 5.04 mg/dL (= or < 0.5); Protein, Total 5.1 g/dL (6.0-8.3)
[2020-05-27] MEDS: Enoxaparin Sodium 40 MG/0.4 ML SYRINGE SC SCH ×2 (08:12→20:49)
[2020-05-27] MEDS: Dexamethasone 4 mg/ml Vial SLOW IVP SCH (08:12)
[2020-05-27] MEDS: guaiFENesin ER 600 MG TAB PO SCH ×2 (08:12→20:49)
[2020-05-27] MEDS: Famotidine 20 MG TAB PO SCH ×2 (08:12→20:49)
[2020-05-27] MEDS: Lidocaine 5% Patch TD SCH (08:13)
[2020-05-27] MEDS: Ascorbic Acid 500 mg Chewable Tablet PO SCH (08:13)
[2020-05-27] MEDS: Acetaminophen 325 MG TAB PO PRN ×2 (11:25→16:55)
[2020-05-27] MEDS: REMDESIVIR (EUA) 100 MG in Sodium Chloride 0.9% 250 ML 230 ML IV SCH (16:55)
--- NOTE | 2020-05-27 16:58 | PDOC.HOSPP ---
- Subjective Encounter Date: 05/27/20 Encounter Time: 16:55 Subjective: Patient up in bed had some shortness of breath earlier currently she is on 5 L of nasal cannula. - Objective Vital Signs & Weight: Vital Signs (12 hours) Temp Pulse Pulse Pulse Resp BP BP 05/27/20 16:00 97.9 F 90 24 H 05/27/20 12:00 89 88 94 24 H 173/74 H 130/66 05/27/20 09:56 98.5 F 88 26 H BP BP Pulse Ox Pulse Ox Pulse Ox 05/27/20 16:00 162/89 H 95 05/27/20 12:00 158/83 H 94 L 98 96 05/27/20 09:56 146/79 H 92 L Weight Weight 186 lb 3.239 oz I&O: 05/26/20 05/27/20 05/28/20 06:59 06:59 06:59 Intake Total 1851.5 2310 Output Total 1200 Balance 651.5 2310 Result Diagrams: 05/26/20 05:00 05/26/20 05:00 Hospitalist ROS - Review of Systems Respiratory: reports: shortness of breath Cardiovascular: denies: chest pain, palpitations, orthopnea, paroxysmal noc. dyspnea, edema, light headedness, other Gastrointestinal: denies: nausea, vomiting, abdominal pain, diarrhea, constipation, melena, hematochezia, other Genitourinary: denies: dysuria, frequency, incontinence, hematuria, retention, other - Medication Medications: Active Medications Generic Name Dose Route Start Last Admin Trade Name Freq PRN Reason Stop Dose Admin Acetaminophen 650 mg 05/23/20 15:48 05/27/20 11:25 Acetaminophen 325 Mg Tab PO 650 mg Q4H PRN Administration Headache/Fever/Mild Pain (1-3) Albuterol Sulfate 2 puff 05/23/20 18:30 05/27/20 13:57 Albuterol 200 Puff (6.7gm Inhaler) INH 2 puff [id number] SUMI Administration Ascorbic Acid 1,000 mg 05/24/20 09:00 05/27/20 08:13 Ascorbic Acid 500 Mg Chewable Tablet PO 1,000 mg DAILY SUMI Administration Dexamethasone 6 mg 05/24/20 09:00 05/27/20 08:12 Dexamethasone 4 Mg/Ml Vial SLOW IVP 6 mg DAILY SUMI Administration Enoxaparin Sodium 40 mg 05/23/20 21:00 05/27/20 08:12 Enoxaparin Sodium 40 Mg/0.4 Ml Syringe SC 40 mg 09,2099 SUMI Administration Famotidine 20 mg 05/23/20 21:00 05/27/20 08:12 Famotidine 20 Mg Tab PO 20 mg BID SUMI Administration Guaifenesin 600 mg 05/23/20 21:00 05/27/20 08:12 Guaifenesin Er 600 Mg Tab PO 600 mg Q12HR SUMI Administration Guaifenesin 200 mg 05/23/20 15:52 05/26/20 15:42 Diabetic Tussin 200 Mg/10 Ml Udcup PO 200 mg Q4H PRN Administration Cough Remdesivir 100 mg/ Sodium 250 mls @ 250 mls/hr 05/26/20 18:00 05/26/20 18:01 Chloride IV 05/27/20 18:59 250 mls 1800 SUMI Administration Lidocaine 1 patch 05/26/20 09:00 05/27/20 08:13 Lidocaine 5% Patch TD 1 patch DAILY SUMI Administration Melatonin 3 mg 05/25/20 21:00 05/26/20 20:57 Melatonin 3 Mg Tab PO 3 mg HS SUMI Administration Miscellaneous Medication 1 each 05/26/20 21:00 05/26/20 20:58 Lidocaine Patch Removal 1 Each TOP 1 each 2100 SUMI Administration Sodium Chloride 10 ml 05/23/20 15:48 05/25/20 09:01 Flush - Normal Saline 10 Ml Syringe IVF 10 ml PRN PRN Administration Saline Flush Zinc Sulfate 220 mg 05/23/20 21:00 05/26/20 20:57 Zinc Sulfate 220 Mg Cap PO 220 mg HS SUMI Administration - Exam Neck: negative: supple, symmetric, no JVD, no thyromegaly, no lymphadenopathy, no carotid bruit, JVD Heart: negative: RRR, no murmur, no gallops, no rubs, normal peripheral pulses, irregular, diminshed peripheral pulses, murmur present, II/IV, III/IV Respiratory: negative: CTAB, no wheezes, no rales, no ronchi, normal chest expansion, no tachypnea, normal percussion, rales, rhonchi, tachypneic, wheezes Gastrointestinal: negative: soft, non-tender, non-distended, normal bowel sounds, no palpable masses, no hepatomegaly, no splenomegaly, no bruit, no guarding, no rigidity, tender to palpation, distended, diminished bowl sounds, voluntary guarding Hosp A/P - Plan DVT proph w/lovenox, DVT proph w/SCDs Acute hypoxic respiratory failure due to moderate to severe COVID-19 pneumonia Sepsis due to above Diarrhea due to above Hypophosphatemia CKD stage II Abnormal LFTs Hyperlipidemia Chronic low back pain Chronic left ear hearing issues Plan: Continue O2 supplementation. Continue remdesivir. S/p convalescent plasma. Continue dexamethasone. Continue Lovenox twice daily for DVT prophylaxis. Change K-Phos to IV due to diarrhea. Add as needed Imodium. Continue vitamin C and zinc. Continue bronchodilators 05/25 patient continues to be on 5 L nasal cannula. We will continue current treatment. 05/26 patient currently on 3 to 4 L nasal cannula sats are stable. We will continue remdesivir. We will get physical therapy to see the patient. 05/27 patient currently on 5 L of nasal cannula. Patient will get last day of remdesivir today. We will continue steroids, DVT prophylaxis.
[2020-05-27] MEDS: Zinc Sulfate 220 MG CAP PO SCH (20:50)
[2020-05-27] MEDS: Melatonin 3 MG TAB PO SCH (20:50)
[2020-05-27] MEDS: Lidocaine Patch Removal 1 EACH TOP SCH (20:50)
[2020-05-27] MEDS: Zolpidem Tartrate 5 MG TAB PO PRN (21:13)
[2020-05-27] MEDS: Ondansetron PF 4 MG/2 ML Vial IVP PRN (23:37)
[2020-05-28] MEDS: Albuterol 200 PUFF (6.7GM INHALER) INH SCH ×6 (01:37→20:57)
[2020-05-28] MEDS: Lidocaine 5% Patch TD SCH (07:49)
[2020-05-28] MEDS: Ascorbic Acid 500 mg Chewable Tablet PO SCH (07:49)
[2020-05-28] MEDS: guaiFENesin ER 600 MG TAB PO SCH ×2 (07:50→20:57)
[2020-05-28] MEDS: Famotidine 20 MG TAB PO SCH ×2 (07:50→20:57)
[2020-05-28] MEDS: Enoxaparin Sodium 40 MG/0.4 ML SYRINGE SC SCH ×2 (07:50→20:57)
[2020-05-28] MEDS: Dexamethasone 4 mg/ml Vial SLOW IVP SCH (07:50)
--- NOTE | 2020-05-28 16:10 | PDOC.HOSPP ---
- Subjective Encounter Date: 05/28/20 Encounter Time: 12:50 Subjective: Patient up in chair no complaints. - Objective Vital Signs & Weight: Vital Signs (12 hours) Temp Pulse Resp BP Pulse Ox 05/28/20 10:36 98.4 F 85 22 H 131/70 95 05/28/20 10:00 94 L 05/28/20 08:09 98 05/28/20 07:47 98.5 F 80 20 154/72 H 98 Weight Weight 186 lb 3.239 oz I&O: 05/27/20 05/28/20 05/29/20 06:59 06:59 06:59 Intake Total 2309 2049 Balance 2309 2049 Result Diagrams: 05/26/20 05:00 05/26/20 05:00 Hospitalist ROS - Review of Systems Cardiovascular: denies: chest pain, palpitations, orthopnea, paroxysmal noc. dyspnea, edema, light headedness, other Gastrointestinal: denies: nausea, vomiting, abdominal pain, diarrhea, constipation, melena, hematochezia, other Genitourinary: denies: dysuria, frequency, incontinence, hematuria, retention, other - Medication Medications: Active Medications Generic Name Dose Route Start Last Admin Trade Name Freq PRN Reason Stop Dose Admin Acetaminophen 650 mg 05/23/20 15:48 05/27/20 16:55 Acetaminophen 325 Mg Tab PO 650 mg Q4H PRN Administration Headache/Fever/Mild Pain (1-3) Albuterol Sulfate 2 puff 05/23/20 18:30 05/28/20 14:35 Albuterol 200 Puff (6.7gm Inhaler) INH 2 puff [id number] SUMI Administration Ascorbic Acid 1,000 mg 05/24/20 09:00 05/28/20 07:49 Ascorbic Acid 500 Mg Chewable Tablet PO 1,000 mg DAILY SUMI Administration Dexamethasone 6 mg 05/24/20 09:00 05/28/20 07:50 Dexamethasone 4 Mg/Ml Vial SLOW IVP 6 mg DAILY SUMI Administration Enoxaparin Sodium 40 mg 05/23/20 21:00 05/28/20 07:50 Enoxaparin Sodium 40 Mg/0.4 Ml Syringe SC 40 mg 0900,2100 SUMI Administration Famotidine 20 mg 05/23/20 21:00 05/28/20 07:50 Famotidine 20 Mg Tab PO 20 mg BID SUMI Administration Guaifenesin 600 mg 05/23/20 21:00 05/28/20 07:50 Guaifenesin Er 600 Mg Tab PO 600 mg Q12HR SUMI Administration Guaifenesin 200 mg 05/23/20 15:52 05/26/20 15:42 Diabetic Tussin 200 Mg/10 Ml Udcup PO 200 mg Q4H PRN Administration Cough Lidocaine 1 patch 05/26/20 09:00 05/28/20 07:49 Lidocaine 5% Patch TD 1 patch DAILY SUMI Administration Melatonin 3 mg 05/25/20 21:00 05/27/20 20:50 Melatonin 3 Mg Tab PO 3 mg HS SUMI Administration Miscellaneous Medication 1 each 05/26/20 21:00 05/27/20 20:50 Lidocaine Patch Removal 1 Each TOP 1 each 2100 SUMI Administration Ondansetron HCl 4 mg 05/23/20 15:48 05/27/20 23:37 Ondansetron Pf 4 Mg/2 Ml Vial IVP 4 mg Q6H PRN Administration Nausea/Vomiting Sodium Chloride 10 ml 05/23/20 15:48 05/27/20 23:37 Flush - Normal Saline 10 Ml Syringe IVF 10 ml PRN PRN Administration Saline Flush Tramadol HCl 50 mg 05/23/20 15:51 05/27/20 20:51 Tramadol Hcl 50 Mg Tab PO 50 mg Q4H PRN Administration Moderate Pain (4-6) Zinc Sulfate 220 mg 05/23/20 21:00 05/27/20 20:50 Zinc Sulfate 220 Mg Cap PO 220 mg HS SUMI Administration Zolpidem Tartrate 5 mg 05/25/20 17:39 05/27/20 21:13 Zolpidem Tartrate 5 Mg Tab PO 5 mg HSPRN PRN Administration Insomnia - Exam Heart: negative: RRR, no murmur, no gallops, no rubs, normal peripheral pulses, irregular, diminshed peripheral pulses, murmur present, II/IV, III/IV Respiratory: negative: CTAB, no wheezes, no rales, no ronchi, normal chest expansion, no tachypnea, normal percussion, rales, rhonchi, tachypneic, wheezes Gastrointestinal: negative: soft, non-tender, non-distended, normal bowel sounds, no palpable masses, no hepatomegaly, no splenomegaly, no bruit, no guarding, no rigidity, tender to palpation, distended, diminished bowl sounds, voluntary guarding Extremities: negative: no cyanosis, no clubbing, no edema, 1+ LE edema, 2+ LE edema, clubbing Hosp A/P - Plan DVT proph w/lovenox, DVT proph w/SCDs Acute hypoxic respiratory failure due to moderate to severe COVID-19 pneumonia Sepsis due to above Diarrhea due to above Hypophosphatemia CKD stage II Abnormal LFTs Hyperlipidemia Chronic low back pain Chronic left ear hearing issues Plan: Continue O2 supplementation. Continue remdesivir. S/p convalescent plasma. Continue dexamethasone. Continue Lovenox twice daily for DVT prophylaxis. Change K-Phos to IV due to diarrhea. Add as needed Imodium. Continue vitamin C and zinc. Continue bronchodilators 05/25 patient continues to be on 5 L nasal cannula. We will continue current treatment. 05/26 patient currently on 3 to 4 L nasal cannula sats are stable. We will continue remdesivir. We will get physical therapy to see the patient. 05/27 patient currently on 5 L of nasal cannula. Patient will get last day of remdesivir today. We will continue steroids, DVT prophylaxis. 05/28 patient currently on 3 L nasal cannula doing well. She states that she feels weak. Encouraged her to do exercise and the chair. We will get her up and ambulate her to see if she desats. Most likely home possible tomorrow.
[2020-05-28] MEDS: Zinc Sulfate 220 MG CAP PO SCH (20:57)
[2020-05-28] MEDS: Zolpidem Tartrate 5 MG TAB PO PRN (20:57)
[2020-05-28] MEDS: Melatonin 3 MG TAB PO SCH (20:57)
[2020-05-28] MEDS: Lidocaine Patch Removal 1 EACH TOP SCH (20:58)
[2020-05-28] MEDS ORDERED: traMADol HCl 50 MG TAB PO PRN (22:17)
[2020-05-28] MEDS: Ondansetron ODT 4 MG TAB PO PRN (22:30)
[2020-05-28] MEDS ORDERED: clonazePAM 1 MG TAB PO SCH (22:30)
[2020-05-29 05:56] LABS: Hemoglobin 11.1 g/dL (12.0-16.0); Mean Corpuscular Hemoglobin 25.7 pg (27.0-31.0); Mean Corpuscular Volume 80.2 fL (78.0-98.0); Mean Platelet Volume 8.1 fL (7.4-10.4); Platelet Count 361 thou/uL (130-400); RBC Distribution Width 13.1 % (11.5-14.5); Red Blood Cell (RBC) Count 4.32 mill/uL (4.20-5.40); White Blood Cell (WBC) Count 18.6 thou/uL (4.8-10.8)
[2020-05-29 06:02] LABS: ALT (SGPT) 43 U/L (8-55); AST (SGOT) 23 U/L (5-34); Albumin 2.5 g/dL (3.4-4.8); Alkaline Phosphatase 109 U/L (40-110); Anion Gap 11 mmol/L (10-20); BUN (Urea Nitrogen) 16 mg/dL (9.8-20.1); Bilirubin, Total 0.5 mg/dL (0.2-1.2); Calc. Creatinine Clearance 109 mL/min (70-130); Calcium 7.7 mg/dL (7.8-10.44); Carbon Dioxide 29 mmol/L (23-31); Chloride 101 mmol/L (98-107); Globulin 2.3 g/dL (2.4-3.5); Glucose 94 mg/dL (83-110); Phosphorus 4.1 mg/dL (2.3-4.7); Potassium 3.9 mmol/L (3.5-5.1); Protein, Total 4.8 g/dL (6.0-8.3); Sodium 137 mmol/L (136-145)
[2020-05-29 06:31] LABS: Band 9 % (5-11); Eosinophils 1 % (0-10); Lymphocytes 10 % (21-51); MDiff Complete? YES; Monocytes 5 % (0-10); Myelocyte 2 % (0-0); Neutrophil 73 % (42-75)
[2020-05-29] MEDS: Albuterol 200 PUFF (6.7GM INHALER) INH SCH ×5 (06:56→21:31)
[2020-05-29] MEDS: Atorvastatin Calcium 40 MG TAB PO SCH (09:28)
[2020-05-29] MEDS: Dexamethasone 4 mg/ml Vial SLOW IVP SCH (09:28)
[2020-05-29] MEDS: Ascorbic Acid 500 mg Chewable Tablet PO SCH (09:28)
[2020-05-29] MEDS: Citalopram 10 MG TAB PO SCH (09:28)
[2020-05-29] MEDS: guaiFENesin ER 600 MG TAB PO SCH ×2 (09:28→21:29)
[2020-05-29] MEDS: Lisinopril 5 MG TAB PO SCH (09:28)
[2020-05-29] MEDS: Famotidine 20 MG TAB PO SCH ×2 (09:28→21:29)
[2020-05-29] MEDS: Enoxaparin Sodium 40 MG/0.4 ML SYRINGE SC SCH ×2 (09:29→21:30)
[2020-05-29] MEDS: Lidocaine 5% Patch TD SCH (09:29)
--- NOTE | 2020-05-29 10:53 | RAD ---
EXAM: Chest one view: HISTORY: Worsening Covid pneumonia COMPARISON: 05/23/2020 FINDINGS: Heart size: Within normal limits. Lungs: Stable minimally more prominent interstitial, alveolar nodular, and groundglass opacity change s throughout the primarily peripheral aspects of both right and left lungs. No evidence for pleural effusion. IMPRESSION: Minimally progressive bilateral Covid pneumonia.
[2020-05-29] MEDS: Pregabalin 50 MG CAP PO SCH ×2 (12:12→21:28)
--- NOTE | 2020-05-29 16:54 | PRG ---
DATE OF SERVICE: 05/29/2020 SUBJECTIVE: Feeling better. She feels like overnight she finally turned the corner, not coughing. Not much dyspnea. No abdominal pain or diarrhea. OBJECTIVE: VITAL SIGNS: Temperature normal. She is now down to 2 L nasal cannula and saturating 100%. She desaturates down to 91%, sometimes lower on effort, but once the exercises stopped, she goes right back up in just a few seconds. LUNGS: Clear to auscultation and percussion. HEART: S1 and S2, regular rate. ABDOMEN: Soft, not distended or tender. NEUROLOGIC: Nonfocal. LABORATORY DATA: White cell count 18.6, probably steroid effect. The differential is normal. D-dimer is 1.35, that was 3 days ago. The ferritin is down to 189. The CRP is down from 21 to 5.84. Repeat chest x-ray with minimally progressive COVID pneumonia. ASSESSMENT AND DISCUSSION: Hyperlipidemia, severe COVID pneumonia with clear-cut improvement now. She desaturates, but once she stops the exercise, she goes back up quickly in just a few seconds, which tells me that this process is resolving quickly as well. She has completed remdesivir and she is on Decadron and should continue to do well. Job ID: [id number]
[2020-05-29] MEDS ORDERED: clonazePAM 1 MG TAB PO SCH (21:00)
[2020-05-29] MEDS: Lidocaine Patch Removal 1 EACH TOP SCH (21:26)
[2020-05-29] MEDS: Melatonin 3 MG TAB PO SCH (21:29)
[2020-05-29] MEDS: Zinc Sulfate 220 MG CAP PO SCH (21:29)
[2020-05-29] MEDS: Ondansetron PF 4 MG/2 ML Vial IVP PRN (21:30)
[2020-05-29] MEDS: clonazePAM 1 MG TAB PO SCH (21:30)
[2020-05-30] MEDS: Albuterol 200 PUFF (6.7GM INHALER) INH SCH ×6 (04:36→21:05)
[2020-05-30] MEDS: Famotidine 20 MG TAB PO SCH ×2 (08:27→20:49)
[2020-05-30] MEDS: Ascorbic Acid 500 mg Chewable Tablet PO SCH (08:27)
[2020-05-30] MEDS: Lidocaine 5% Patch TD SCH (08:27)
[2020-05-30] MEDS: Lisinopril 5 MG TAB PO SCH (08:28)
[2020-05-30] MEDS: Pregabalin 50 MG CAP PO SCH ×3 (08:28→20:48)
[2020-05-30] MEDS: Atorvastatin Calcium 40 MG TAB PO SCH (08:28)
[2020-05-30] MEDS: Citalopram 10 MG TAB PO SCH (08:28)
[2020-05-30] MEDS: guaiFENesin ER 600 MG TAB PO SCH ×2 (08:28→20:49)
[2020-05-30] MEDS: Dexamethasone 4 mg/ml Vial SLOW IVP SCH (08:29)
[2020-05-30] MEDS: Enoxaparin Sodium 40 MG/0.4 ML SYRINGE SC SCH ×2 (08:29→20:50)
[2020-05-30 08:40] LABS: ALT (SGPT) 40 U/L (8-55); AST (SGOT) 21 U/L (5-34); Albumin 2.6 g/dL (3.4-4.8); Alkaline Phosphatase 108 U/L (40-110); Anion Gap 12 mmol/L (10-20); BUN (Urea Nitrogen) 19 mg/dL (9.8-20.1); Bilirubin, Total 0.4 mg/dL (0.2-1.2); CRP (Inflammatory) 3.23 mg/dL (= or < 0.5); Calc. Creatinine Clearance 106 mL/min (70-130); Calcium 7.9 mg/dL (7.8-10.44); Carbon Dioxide 30 mmol/L (23-31); Chloride 103 mmol/L (98-107); Globulin 2.3 g/dL (2.4-3.5); Glucose 73 mg/dL (83-110); Potassium 4.2 mmol/L (3.5-5.1); Protein, Total 4.9 g/dL (6.0-8.3); Sodium 141 mmol/L (136-145)
[2020-05-30 08:45] LABS: Band 4 % (5-11); Hemoglobin 11.2 g/dL (12.0-16.0); Lymphocytes 15 % (21-51); MDiff Complete? YES; Mean Corpuscular HGB CONC 33.7 g/dL (32.0-36.0); Mean Corpuscular Hemoglobin 27.3 pg (27.0-31.0); Mean Corpuscular Volume 81.2 fL (78.0-98.0); Mean Platelet Volume 7.8 fL (7.4-10.4); Monocytes 5 % (0-10); Neutrophil 76 % (42-75); Platelet Count 372 thou/uL (130-400); RBC Distribution Width 13.2 % (11.5-14.5); White Blood Cell (WBC) Count 19.4 thou/uL (4.8-10.8)
--- NOTE | 2020-05-30 09:25 | PDOC.HOSPP ---
- Subjective Encounter Date: 05/29/20 Encounter Time: 13:00 Subjective: pt up in chair worked with PT feels great. - Objective Vital Signs & Weight: Vital Signs (12 hours) Temp Pulse Resp BP BP Pulse Ox 05/30/20 08:36 98.4 F 78 20 155/67 H 95 05/30/20 04:55 98.2 F 71 16 127/60 96 05/30/20 03:33 100 Weight Weight 186 lb 3.239 oz I&O: 05/29/20 05/30/20 05/31/20 06:59 06:59 06:59 Intake Total 1080 960 480 Output Total 100 Balance 1080 860 480 Result Diagrams: 05/30/20 07:51 05/30/20 07:51 Hospitalist ROS - Review of Systems Cardiovascular: denies: chest pain, palpitations, orthopnea, paroxysmal noc. dyspnea, edema, light headedness, other Gastrointestinal: denies: nausea, vomiting, abdominal pain, diarrhea, constipation, melena, hematochezia, other - Medication Medications: Active Medications Generic Name Dose Route Start Last Admin Trade Name Freq PRN Reason Stop Dose Admin Acetaminophen 650 mg 05/23/20 15:48 05/27/20 16:55 Acetaminophen 325 Mg Tab PO 650 mg Q4H PRN Administration Headache/Fever/Mild Pain (1-3) Albuterol Sulfate 2 puff 05/23/20 18:30 05/30/20 07:27 Albuterol 200 Puff (6.7gm Inhaler) INH Not Given [id number] Ascorbic Acid 1,000 mg 05/24/20 09:00 05/30/20 08:27 Ascorbic Acid 500 Mg Chewable Tablet PO 1,000 mg DAILY SUMI Administration Atorvastatin Calcium 40 mg 05/29/20 09:00 05/30/20 08:28 Atorvastatin Calcium 40 Mg Tab PO 40 mg DAILY SUMI Administration Citalopram Hydrobromide 10 mg 05/29/20 09:00 05/30/20 08:28 Citalopram 10 Mg Tab PO 10 mg DAILY SUMI Administration Clonazepam 1 mg 05/29/20 21:00 05/29/20 21:30 Clonazepam 1 Mg Tab PO 1 mg HS SUMI Administration Dexamethasone 6 mg 05/24/20 09:00 05/30/20 08:29 Dexamethasone 4 Mg/Ml Vial SLOW IVP 6 mg DAILY SUMI Administration Enoxaparin Sodium 40 mg 05/23/20 21:00 05/30/20 08:29 Enoxaparin Sodium 40 Mg/0.4 Ml Syringe SC 40 mg 0900,2100 SUMI Administration Famotidine 20 mg 05/23/20 21:00 05/30/20 08:27 Famotidine 20 Mg Tab PO 20 mg BID SUMI Administration Guaifenesin 600 mg 05/23/20 21:00 05/30/20 08:28 Guaifenesin Er 600 Mg Tab PO 600 mg Q12HR SUMI Administration Guaifenesin 200 mg 05/23/20 15:52 05/26/20 15:42 Diabetic Tussin 200 Mg/10 Ml Udcup PO 200 mg Q4H PRN Administration Cough Lidocaine 1 patch 05/26/20 09:00 05/30/20 08:27 Lidocaine 5% Patch TD 1 patch DAILY SUMI Administration Lisinopril 5 mg 05/29/20 09:00 05/30/20 08:28 Lisinopril 5 Mg Tab PO 5 mg DAILY SUMI Administration Melatonin 3 mg 05/25/20 21:00 05/29/20 21:29 Melatonin 3 Mg Tab PO 3 mg HS SUMI Administration Miscellaneous Medication 1 each 05/26/20 21:00 05/29/20 21:26 Lidocaine Patch Removal 1 Each TOP 1 each 2099 SUMI Administration Ondansetron HCl 4 mg 05/23/20 15:48 05/29/20 21:30 Ondansetron Pf 4 Mg/2 Ml Vial IVP 4 mg Q6H PRN Administration Nausea/Vomiting Ondansetron HCl 4 mg 05/23/20 15:48 05/28/20 22:30 Ondansetron Odt 4 Mg Tab PO 4 mg Q6H PRN Administration Nausea/Vomiting Pregabalin 50 mg 05/29/20 12:00 05/30/20 08:28 Pregabalin 50 Mg Cap PO 50 mg 0900,1200 SUMI Administration Pregabalin 100 mg 05/29/20 21:00 05/29/20 21:28 Pregabalin 50 Mg Cap PO 100 mg 2100 SUMI Administration Sodium Chloride 10 ml 05/23/20 15:48 05/30/20 08:29 Flush - Normal Saline 10 Ml Syringe IVF 10 ml PRN PRN Administration Saline Flush Tramadol HCl 50 mg 05/23/20 15:51 05/27/20 20:51 Tramadol Hcl 50 Mg Tab PO 50 mg Q4H PRN Administration Moderate Pain (4-6) Zinc Sulfate 220 mg 05/23/20 21:00 05/29/20 21:29 Zinc Sulfate 220 Mg Cap PO 220 mg HS SUMI Administration Zolpidem Tartrate 5 mg 05/25/20 17:39 05/28/20 20:57 Zolpidem Tartrate 5 Mg Tab PO 5 mg HSPRN PRN Administration Insomnia - Exam Neck: negative: supple, symmetric, no JVD, no thyromegaly, no lymphadenopathy, no carotid bruit, JVD Heart: negative: RRR, no murmur, no gallops, no rubs, normal peripheral pulses, irregular, diminshed peripheral pulses, murmur present, II/IV, III/IV Respiratory: negative: CTAB, no wheezes, no rales, no ronchi, normal chest expansion, no tachypnea, normal percussion, rales, rhonchi, tachypneic, wheezes Gastrointestinal: negative: soft, non-tender, non-distended, normal bowel sounds, no palpable masses, no hepatomegaly, no splenomegaly, no bruit, no guarding, no rigidity, tender to palpation, distended, diminished bowl sounds, voluntary guarding Hosp A/P - Plan DVT proph w/lovenox, DVT proph w/SCDs Acute hypoxic respiratory failure due to moderate to severe COVID-19 pneumonia Sepsis due to above Diarrhea due to above Hypophosphatemia CKD stage II Abnormal LFTs Hyperlipidemia Chronic low back pain Chronic left ear hearing issues Plan: Continue O2 supplementation. Continue remdesivir. S/p convalescent plasma. Continue dexamethasone. Continue Lovenox twice daily for DVT prophylaxis. Change K-Phos to IV due to diarrhea. Add as needed Imodium. Continue vitamin C and zinc. Continue bronchodilators 05/25 patient continues to be on 5 L nasal cannula. We will continue current treatment. 05/26 patient currently on 3 to 4 L nasal cannula sats are stable. We will continue remdesivir. We will get physical therapy to see the patient. 05/27 patient currently on 5 L of nasal cannula. Patient will get last day of remdesivir today. We will continue steroids, DVT prophylaxis. 05/28 patient currently on 3 L nasal cannula doing well. She states that she feels weak. Encouraged her to do exercise and the chair. We will get her up and ambulate her to see if she desats. Most likely home possible tomorrow. 12/ pt feels well inflammatory markers are improving. However she has elevated wbc, will order cxr and watch her. She is afebrile.
--- NOTE | 2020-05-30 15:04 | EKG ---
Test Reason : Blood Pressure : / mmHG Vent. Rate : 087 BPM Atrial Rate : 087 BPM P-R Int : 126 ms QRS Dur : 090 ms QT Int : 410 ms P-R-T Axes : 051 035 021 degrees QTc Int : 493 ms Normal sinus rhythm Nonspecific ST and T wave abnormality Prolonged QT Abnormal ECG Confirmed by RADHIKA Alva, LES ([id number]), tape editor GENIE LÓPEZ ([id number]) on 05/30/2020 3:03:55 PM Referred By: Confirmed By:LES GARRIDO M.D.
--- NOTE | 2020-05-30 16:28 | PDOC.HOSPP ---
- Subjective Encounter Date: 05/30/20 Encounter Time: 16:00 Subjective: Patient seen and examined for respiratory failure due to COVID-19. Short of breath on [id number] exertion. Some dry cough. Feels generally weak and fatigue. - Objective Vital Signs & Weight: Vital Signs (12 hours) Temp Pulse Resp BP BP BP Pulse Ox 05/30/20 15:49 98.4 F 77 20 132/68 96 05/30/20 12:30 97.9 F 80 20 147/65 H 95 05/30/20 08:36 98.4 F 78 20 155/67 H 95 05/30/20 04:55 98.2 F 71 16 127/60 96 Weight Weight 186 lb 3.239 oz I&O: 05/29/20 05/30/20 05/31/20 06:59 06:59 06:59 Intake Total 1080 960 480 Output Total 100 Balance 1080 860 480 Result Diagrams: 05/30/20 07:51 05/30/20 07:51 Additional Labs: Abnormal Lab Results - Last 48 hrs 05/29/20 05:27: Calcium 7.7 L, Serum Total Protein 4.8 L, Albumin 2.5 L, Globulin 2.3 L, Albumin/Globulin Ratio 1.1 L 05/29/20 05:27: WBC 18.6 H, Hgb 11.1 L, Hct 34.6 L, MCH 25.7 L, Lymphocytes % (Manual) 10 L, Myelocytes % 2 H 05/29/20 05:27: C-Reactive Protein 5.84 H 05/30/20 07:51: C-Reactive Protein 3.23 H, Serum Total Protein 4.9 L, Albumin 2.6 L, Globulin 2.3 L, Albumin/Globulin Ratio 1.1 L 05/30/20 07:51: WBC 19.4 H, RBC 4.10 L, Hgb 11.2 L, Hct 33.3 L, Neutrophils % (Manual) 76 H, Band Neuts % (Manual) 4 L, Lymphocytes % (Manual) 15 L 05/30/20 07:51: D-Dimer 2.18 H Radiology Reviewed by me: Yes (Chest x-raybilateral infiltrates) EKG Reviewed by me: Yes (Sinus rhythm on telemetry) Hospitalist ROS - Review of Systems Cardiovascular: denies: chest pain, palpitations, orthopnea, paroxysmal noc. dyspnea, edema, light headedness, other Gastrointestinal: denies: nausea, vomiting, abdominal pain, diarrhea, constipation, melena, hematochezia, other - Medication Medications: Active Medications Generic Name Dose Route Start Last Admin Trade Name Freq PRN Reason Stop Dose Admin Acetaminophen 650 mg 05/23/20 15:48 05/27/20 16:55 Acetaminophen 325 Mg Tab PO 650 mg Q4H PRN Administration Headache/Fever/Mild Pain (1-3) Albuterol Sulfate 2 puff 05/23/20 18:30 05/30/20 16:11 Albuterol 200 Puff (6.7gm Inhaler) INH 2 puff [id number] SUMI Administration Ascorbic Acid 1,000 mg 05/24/20 09:00 05/30/20 08:27 Ascorbic Acid 500 Mg Chewable Tablet PO 1,000 mg DAILY SUMI Administration Atorvastatin Calcium 40 mg 05/29/20 09:00 05/30/20 08:28 Atorvastatin Calcium 40 Mg Tab PO 40 mg DAILY SUMI Administration Citalopram Hydrobromide 10 mg 05/29/20 09:00 05/30/20 08:28 Citalopram 10 Mg Tab PO 10 mg DAILY SUMI Administration Clonazepam 1 mg 05/29/20 21:00 05/29/20 21:30 Clonazepam 1 Mg Tab PO 1 mg HS SUMI Administration Enoxaparin Sodium 40 mg 05/23/20 21:00 05/30/20 08:29 Enoxaparin Sodium 40 Mg/0.4 Ml Syringe SC 40 mg 0900,2100 SUMI Administration Famotidine 20 mg 05/23/20 21:00 05/30/20 08:27 Famotidine 20 Mg Tab PO 20 mg BID SUMI Administration Guaifenesin 600 mg 05/23/20 21:00 05/30/20 08:28 Guaifenesin Er 600 Mg Tab PO 600 mg Q12HR SUMI Administration Guaifenesin 200 mg 05/23/20 15:52 05/26/20 15:42 Diabetic Tussin 200 Mg/10 Ml Udcup PO 200 mg Q4H PRN Administration Cough Lidocaine 1 patch 05/26/20 09:00 05/30/20 08:27 Lidocaine 5% Patch TD 1 patch DAILY SUMI Administration Lisinopril 5 mg 05/29/20 09:00 05/30/20 08:28 Lisinopril 5 Mg Tab PO 5 mg DAILY SUMI Administration Melatonin 3 mg 05/25/20 21:00 05/29/20 21:29 Melatonin 3 Mg Tab PO 3 mg HS SUMI Administration Miscellaneous Medication 1 each 05/26/20 21:00 05/29/20 21:26 Lidocaine Patch Removal 1 Each TOP 1 each 2100 SUMI Administration Ondansetron HCl 4 mg 05/23/20 15:48 05/29/20 21:30 Ondansetron Pf 4 Mg/2 Ml Vial IVP 4 mg Q6H PRN Administration Nausea/Vomiting Ondansetron HCl 4 mg 05/23/20 15:48 05/28/20 22:30 Ondansetron Odt 4 Mg Tab PO 4 mg Q6H PRN Administration Nausea/Vomiting Pregabalin 50 mg 05/29/20 12:00 05/30/20 12:24 Pregabalin 50 Mg Cap PO 50 mg 0900,1200 SUMI Administration Pregabalin 100 mg 05/29/20 21:00 05/29/20 21:28 Pregabalin 50 Mg Cap PO 100 mg 2100 SUMI Administration Sodium Chloride 10 ml 05/23/20 15:48 05/30/20 08:29 Flush - Normal Saline 10 Ml Syringe IVF 10 ml PRN PRN Administration Saline Flush Tramadol HCl 50 mg 05/23/20 15:51 05/27/20 20:51 Tramadol Hcl 50 Mg Tab PO 50 mg Q4H PRN Administration Moderate Pain (4-6) Zinc Sulfate 220 mg 05/23/20 21:00 05/29/20 21:29 Zinc Sulfate 220 Mg Cap PO 220 mg HS SUMI Administration Zolpidem Tartrate 5 mg 05/25/20 17:39 05/28/20 20:57 Zolpidem Tartrate 5 Mg Tab PO 5 mg HSPRN PRN Administration Insomnia - Exam General Appearance: ill appearing Neck: supple, no JVD Heart: RRR, no gallops Respiratory: no wheezes, rales, rhonchi Gastrointestinal: soft, non-tender, normal bowel sounds Extremities: no cyanosis, no clubbing Neurological: no new deficit Hosp A/P - Plan DVT proph w/lovenox, DVT proph w/SCDs Sepsis/acute hypoxic respiratory failure due to moderate to severe COVID-19 pneumonia Diarrhea due to aboveimproved Hypophosphatemia CKD stage II Abnormal LFTs Hyperlipidemia Chronic low back pain Chronic left ear hearing issues Obesity with a BMI of 33 Plan: S/p remdesivir. S/p convalescent plasma. Change dexamethasone to p.o. Continue O2 supplementation. Will arrange for home oxygen. Continue Lovenox for DVT prophylaxis. Possible discharge in 24 hours if stable. Labs reviewed. Case discussed with infectious disease Dr. Yanez. Patient will also require a walker due to generalized weakness and gait instability.
[2020-05-30] MEDS: clonazePAM 1 MG TAB PO SCH (20:49)
[2020-05-30] MEDS: Lidocaine Patch Removal 1 EACH TOP SCH (20:50)
[2020-05-30] MEDS: Melatonin 3 MG TAB PO SCH (20:50)
[2020-05-30] MEDS: Zinc Sulfate 220 MG CAP PO SCH (20:50)
[2020-05-30] MEDS: Ondansetron ODT 4 MG TAB PO PRN (20:52)
[2020-05-31] MEDS: Albuterol 200 PUFF (6.7GM INHALER) INH SCH ×4 (04:30→13:40)
[2020-05-31 05:32] LABS: ALT (SGPT) 41 U/L (8-55); AST (SGOT) 20 U/L (5-34); Albumin 2.5 g/dL (3.4-4.8); Alkaline Phosphatase 99 U/L (40-110); Anion Gap 11 mmol/L (10-20); BUN (Urea Nitrogen) 21 mg/dL (9.8-20.1); Bilirubin, Total 0.4 mg/dL (0.2-1.2); CRP (Inflammatory) 2.04 mg/dL (= or < 0.5); Calc. Creatinine Clearance 103 mL/min (70-130); Calcium 7.7 mg/dL (7.8-10.44); Carbon Dioxide 29 mmol/L (23-31); Chloride 103 mmol/L (98-107); Globulin 2.3 g/dL (2.4-3.5); Glucose 104 mg/dL (83-110); Potassium 4.1 mmol/L (3.5-5.1); Protein, Total 4.8 g/dL (6.0-8.3); Sodium 139 mmol/L (136-145)
[2020-05-31 05:47] LABS: Hemoglobin 10.7 g/dL (12.0-16.0); Mean Corpuscular HGB CONC 32.7 g/dL (32.0-36.0); Mean Corpuscular Hemoglobin 26.8 pg (27.0-31.0); Mean Corpuscular Volume 82.1 fL (78.0-98.0); Mean Platelet Volume 8.2 fL (7.4-10.4); Platelet Count 370 thou/uL (130-400); RBC Distribution Width 13.3 % (11.5-14.5); Red Blood Cell (RBC) Count 3.97 mill/uL (4.20-5.40); White Blood Cell (WBC) Count 16.3 thou/uL (4.8-10.8)
[2020-05-31 05:53] LABS: Band 3 % (5-11); Eosinophils 2 % (0-10); Lymphocytes 12 % (21-51); MDiff Complete? YES; Metamyelocyte 1 % (0-0); Monocytes 8 % (0-10); Myelocyte 2 % (0-0); Neutrophil 71 % (42-75); Reactive Lymphocytes 1 % (0-10)
[2020-05-31] MEDS ORDERED: Dexamethasone 4 MG TAB PO SCH (08:00)
[2020-05-31] MEDS: Pregabalin 50 MG CAP PO SCH ×2 (10:14→13:40)
[2020-05-31] MEDS: Citalopram 10 MG TAB PO SCH (10:14)
[2020-05-31] MEDS: guaiFENesin ER 600 MG TAB PO SCH (10:14)
[2020-05-31] MEDS: Lisinopril 5 MG TAB PO SCH (10:15)
[2020-05-31] MEDS: Atorvastatin Calcium 40 MG TAB PO SCH (10:15)
[2020-05-31] MEDS: Ascorbic Acid 500 mg Chewable Tablet PO SCH (10:15)
[2020-05-31] MEDS: Famotidine 20 MG TAB PO SCH (10:15)
[2020-05-31] MEDS: Enoxaparin Sodium 40 MG/0.4 ML SYRINGE SC SCH (10:16)
[2020-05-31] MEDS: Lidocaine 5% Patch TD SCH (10:16)
[2020-05-31 13:51] VITALS: BP 143/73; TEMP 97.9
--- NOTE | 2020-05-31 16:06 | PDOC.DS.DS ---
Provider - Provider Date of Admission: 05/23/20 15:33 Date of Discharge: 05/31/20 Admitting Provider: Ricardo Robertson MD Consultations: Infectious Disease Primary Care Physician: Anni Denny DO Course - Hospital Course Hospital Course: Patient is a 70-year-old white female with recently diagnosed COVID-19 presented to the emergency room on 05/23 with worsening shortness of breath. Patient was found to have significant hypoxia requiring O2 supplementation. CT scan of the chest showed extensive bilateral groundglass opacity. Please refer to the history and physical for further details. Patient was admitted to the hospital with a diagnosis of acute hypoxic respiratory failure due to COVID-19 pneumonia. She was placed on O2 supplementa tion. She required has gradually improved. She received convalescent plasma, dexamethasone as well as remdesivir. Patient was also evaluated by infectious disease. She had diarrhea on admission that has resolved. Her labs including inflammatory markers were monitored on the daily basis. She has been cleared by infectious disease for discharge. She is currently on 2 L nasal cannula. Home oxygen has been arranged. She was advised to monitor O2 saturations closely. She was also counseled on COVID-19 isolation. Final diagnosis: Sepsis/acute hypoxic respiratory failure due to moderate to severe COVID-19 pneumonia Diarrhea due to aboveimproved Hypophosphatemia CKD stage II Abnormal LFTs Hyperlipidemia Chronic low back pain Chronic left ear hearing issues Obesity with a BMI of 33 Resuscitation Status: 05/23/20 15:48 Resuscitation Status Routine Resuscitation Status: FULL: Full Resuscitation - Labs Lab Results: 05/31/20 04:39 05/31/20 04:39 Abnormal Lab Results - Last 48 hrs 05/30/20 07:51: C-Reactive Protein 3.23 H, Serum Total Protein 4.9 L, Albumin 2.6 L, Globulin 2.3 L, Albumin/Globulin Ratio 1.1 L 05/30/20 07:51: WBC 19.4 H, RBC 4.10 L, Hgb 11.2 L, Hct 33.3 L, Neutrophils % (Manual) 76 H, Band Neuts % (Manual) 4 L, Lymphocytes % (Manual) 15 L 05/30/20 07:51: D-Dimer 2.18 H 05/31/20 04:39: BUN 21 H, Calcium 7.7 L, C-Reactive Protein 2.04 H, Serum Total Protein 4.8 L, Albumin 2.5 L, Globulin 2.3 L, Albumin/Globulin Ratio 1.1 L 05/31/20 04:39: WBC 16.3 H, RBC 3.97 L, Hgb 10.7 L, Hct 32.6 L, MCH 26.8 L, Band Neuts % (Manual) 3 L, Lymphocytes % (Manual) 12 L, Metamyelocytes % (Man) 1 H, Myelocytes % 2 H 05/31/20 04:39: D-Dimer 1.44 H - Physical Exam Vitals: Vital Signs (12 hours) Temp Pulse Resp BP BP Pulse Ox 05/31/20 13:40 97.9 F 73 16 143/73 H 92 L 05/31/20 10:14 98.5 F 74 18 129/58 L 92 L 05/31/20 04:45 94 L 05/31/20 04:30 97.0 F L 65 15 125/88 96 Weight Weight 186 lb 3.239 oz Physical Exam: The patient was evaluated on the day of discharge. Plan - Discharge Medications Prescriptions: Aspirin [Aspirin EC] 81 mg PO DAILY #30 tablet. Dexamethasone 6 mg PO DAILY #3 tablet Famotidine [Pepcid] 20 mg PO BID #30 tab Albuterol Sulfate HFA (OR) [Proventil Hfa (or)] 2 puff INH Q4H #1 inh Ascorbic Acid [Vitamin C] 1,000 mg PO DAILY #30 tablet Zinc Sulfate 220 mg PO DAILY #30 cap Home Medications: Medication Instructions Recorded Confirmed Type Atorvastatin Calcium 1 tab PO DAILY 05/28/20 05/28/20 History Citalopram [CeleXA] 10 mg PO DAILY 05/28/20 05/28/20 History Lisinopril [Zestril] 5 mg PO DAILY 05/28/20 05/28/20 History Pregabalin [Lyrica] 50 mg PO 0800,1200 05/28/20 05/29/20 History clonazePAM [Clonazepam] 1 mg PO HS 05/28/20 05/28/20 History traMADol HCl [Tramadol HCl] 2 tab PO TID PRN 05/28/20 05/28/20 History Bupropion HCl [buPROPion HCl XL] 300 mg PO QAM 05/29/20 05/29/20 History Levothyroxine Sodium 50 mcg PO DAILY 05/29/20 05/29/20 History [Levothyroxine] Pregabalin 100 mg PO HS 05/29/20 05/29/20 History Restasis [Restasis Ophth Drops] 1 drop EA EYE BID 05/29/20 05/29/20 History Acetaminophen [Tylenol Regular 650 mg PO Q4H PRN tab 05/31/20 Rx Strength] Albuterol Sulfate HFA (OR) 2 puff INH Q4H #1 inh 05/31/20 Rx [Proventil Hfa (or)] Ascorbic Acid [Vitamin C] 1,000 mg PO DAILY #30 tablet 05/31/20 Rx Aspirin [Aspirin EC] 81 mg PO DAILY #30 tablet. 05/31/20 Rx Dexamethasone 6 mg PO DAILY #3 tablet 05/31/20 Rx Famotidine [Pepcid] 20 mg PO BID #30 tab 05/31/20 Rx Zinc Sulfate 220 mg PO DAILY #30 cap 05/31/20 Rx Allergies: No Known Allergies Allergy (Verified 05/23/20 18:20) - Discharge Instructions Discharge Instructions:: Hold Celebrex for now until seen by your PCP - Follow up Plan Referrals: Bj Yanez MD [Active] - 10 Days Anni Denny DO [Primary Care Provider] - 7 Days Disposition: HOME HEALTH Quality - Care Measures CORE MEASURES:: N/A
== END 2020-05-31 19:54 | disposition home health service (06) | DRG 871 ==
LOC: ERS 11:39 → 2SW 15:33
PROVIDERS: ADMIT Internal Medicine; ATTEND Internal Medicine
PROC: XW033E5 Introduction of Remdesivir Anti-infective into Peripheral Vein, Percutaneous Approach, New Technology Group 5 (ICD-10-PCS; principal; 2020-05-23)
PROC: XW13325 Transfusion of Convalescent Plasma (Nonautologous) into Peripheral Vein, Percutaneous Approach, New Technology Group 5 (ICD-10-PCS; 2020-05-24)
PROC: 8E0ZXY6 Isolation (ICD-10-PCS; 2020-05-25)
DX: A41.89 Other specified sepsis (principal); U07.1 COVID-19; J12.89 Other viral pneumonia; A08.39 Other viral enteritis; M81.0 Age-related osteoporosis without current pathological fracture; R65.20 Severe sepsis without septic shock; F41.9 Anxiety disorder, unspecified; F32.9 Major depressive disorder, single episode, unspecified; G89.29 Other chronic pain; M54.5 Low back pain; G43.909 Migraine, unspecified, not intractable, without status migrainosus; M19.90 Unspecified osteoarthritis, unspecified site; E78.5 Hyperlipidemia, unspecified; H91.92 Unspecified hearing loss, left ear; E83.39 Other disorders of phosphorus metabolism; N18.2 Chronic kidney disease, stage 2 (mild); R94.5 Abnormal results of liver function studies; E78.00 Pure hypercholesterolemia, unspecified; E66.9 Obesity, unspecified; Z68.33 Body mass index [BMI] 33.0-33.9, adult; Z98.51 Tubal ligation status; Z88.1 Allergy status to other antibiotic agents; Z79.899 Other long term (current) drug therapy; Z79.890 Hormone replacement therapy; Z82.49 Family history of ischemic heart disease and other diseases of the circulatory system; Z82.0 Family history of epilepsy and other diseases of the nervous system
CPT/HCPCS: 36415; 36430; 36600; 71045; 71275; 80053; 80076; 82728; 82805; 83605; 83735; 83880; 84100; 84484; 85025; 85379; 85610; 85730; 86140; 86850; 86900; 86901; 93005; 96361; 96374; 96375; 96376; J1100; J1650; J2405; J7050; J8540; P9017; Q0162; Q9967

== ENCOUNTER 2022-08-17 08:19 | Outpatient (CLI) | payer MEDICARE, BC | END 2022-08-17 08:20 | disposition home or self-care (01) | LOC: RAD 08:19 | PROVIDERS: ATTEND Internal Medicine Critical Care Medicine | DX: R06.00 Dyspnea, unspecified (principal) | CPT/HCPCS: 71046 ==